=== PATIENT | female | born 1965 | race African-American/Black ===

== ENCOUNTER 2022-06-17 10:14 | Inpatient (IN) | payer MEDICAID, OTHER ==
[~2022-06-17] VITALS: Ht 170.2 cm; Wt 61.3 kg
[~2022-06-17 10:14] MED LIST: ALBU18HF2 IH; ASPI-1497 PO; CARV6.2548 MT; FLUT1DIS3 INH; FURO-151 MT; FURO-151 PO; LOSA25TA3 PO; P20 MT; SPIR25TA PO
[2022-06-17 11:18] LABS: BASOPHILS % 0.9 % (0.0-2.0); EOSINOPHILS % 1.1 % (0.0-5.0); HEMATOCRIT. 35.2 % (36.0-48.0); HEMOGLOBIN. 11.1 g/dL (12.0-16.0); LYMPHOCYTES % 23.2 % (20.0-50.0); MEAN PLATELET VOLUME 9.4 fl (7.4-10.4); MONOCYTES % 3.9 % (2.0-8.0); NEUTROPHILS % 70.9 % (40.0-76.0); PLATELET 246 x1000/uL (130-400); RED BLOOD CELL COUNT 3.59 mill/uL (4.2-5.4); RED CELL DISTRIBUTION WIDTH 15.4 % (11.6-14.6)
[2022-06-17 11:25] LABS: INR 1.1; PROTHROMBIN TIME 12.1 sec (9.6-11.0)
[2022-06-17 11:29] LABS: CHLORIDE 108 mEq/L (98-107)
[2022-06-17] MEDS ORDERED: IPRATROPIUM/ALBUTEROL 0.5-3(2.5)MG/3ML NEB HHN ONE (11:30)
[2022-06-17] MEDS ORDERED: METHYLPREDNISOLONE SOD SUCC 125 MG/2 ML VIAL IV ONE (11:30)
[2022-06-17] MEDS ORDERED: ASPIRIN 325MG EC TABLET PO ONE (12:15)
[2022-06-17] MEDS ORDERED: FUROSEMIDE 40MG/4ML VIAL IVP ONE (12:15)
[2022-06-17 17:59] VITALS: BP 104/70
[2022-06-17 19:58] VITALS: BP 125/73
[2022-06-17] MEDS: CARVEDILOL 6.25 MG TABLET PO SCH (21:00)
[2022-06-17] MEDS: FUROSEMIDE 40MG/4ML VIAL IVP SCH (22:09)
[2022-06-17] MEDS: FAMOTIDINE 20MG TABLET PO SCH (22:09)
[2022-06-17] MEDS: ENOXAPARIN 40MG/0.4ML SYR SUBCUT SCH (22:10)
[2022-06-18 00:05] VITALS: BP 119/62
[2022-06-18 00:31] LABS: *AMPHETAMINES SCREEN URINE NEGATIVE (NEGATIVE); *BARBITURATES SCREEN URINE NEGATIVE (NEGATIVE); *BENZODIAZEPINES SCREEN URINE NEGATIVE (NEGATIVE); *COCAINE SCREEN URINE NEGATIVE (NEGATIVE); CANNABINOID URINE SCREEN NEGATIVE (NEGATIVE); METHADONE URINE SCREEN NEGATIVE (NEGATIVE); OPIATES URINE SCREEN NEGATIVE (NEGATIVE); PHENCYCLIDINE URINE SCREEN NEGATIVE (NEGATIVE)
[2022-06-18 01:21] LABS: CREATINE KINASE MB FRACTION 1.1 ng/mL (0.5-3.6)
[2022-06-18] MEDS: ACETAMINOPHEN 325MG TABLET PO PRN (01:36)
[2022-06-18 04:05] VITALS: BP 108/58
[2022-06-18] MEDS: IPRATROPIUM/ALBUTEROL 0.5-3(2.5)MG/3ML NEB HHN PRN ×2 (05:49→09:39)
[2022-06-18 06:49] LABS: BASOPHILS % 0.8 % (0.0-2.0); EOSINOPHILS % 0.1 % (0.0-5.0); HEMATOCRIT. 37.7 % (36.0-48.0); HEMOGLOBIN. 12.5 g/dL (12.0-16.0); LYMPHOCYTES % 10.9 % (20.0-50.0); MEAN CORPUSCULAR HEMOGLOBIN 30.6 pg (28.0-32.0); MEAN CORPUSCULAR VOLUME 92.7 fL (81.0-99.0); MEAN PLATELET VOLUME 9.4 fl (7.4-10.4); MONOCYTES % 2.7 % (2.0-8.0); NEUTROPHILS % 85.5 % (40.0-76.0); PLATELET 270 x1000/uL (130-400); RED BLOOD CELL COUNT 4.07 mill/uL (4.2-5.4); RED CELL DISTRIBUTION WIDTH 14.4 % (11.6-14.6)
[2022-06-18 07:03] LABS: CHLORIDE 102 mEq/L (98-107)
[2022-06-18 07:22] LABS: CREATINE KINASE 92 IU/L (26-192); CREATINE KINASE MB FRACTION < 1.0 ng/mL (0.5-3.6); HDL CHOLESTEROL 45 mg/dL (40-59); LDL CHOLESTEROL 109 mg/dL (5-100)
[2022-06-18 08:00] VITALS: BP 112/76
[2022-06-18] MEDS: ENOXAPARIN 40MG/0.4ML SYR SUBCUT SCH (09:34)
[2022-06-18] MEDS: CARVEDILOL 6.25 MG TABLET PO SCH ×2 (09:34→20:59)
[2022-06-18] MEDS: FUROSEMIDE 40MG/4ML VIAL IVP SCH (09:34)
[2022-06-18] MEDS: PREDNISONE 20MG TABLET PO SCH (09:35)
[2022-06-18] MEDS: FAMOTIDINE 20MG TABLET PO SCH ×2 (09:35→20:58)
[2022-06-18] MEDS: ASPIRIN 81MG TABLET PO SCH (09:35)
[2022-06-18] MEDS: LOSARTAN POTASSIUM 25 MG TABLET PO SCH (09:35)
[2022-06-18] MEDS: BUDESONIDE 0.5MG/2ML NEB HHN SCH ×3 (09:39→21:44)
[2022-06-18] MEDS ORDERED: NALOXONE HCL 0.4MG/ML VIAL IV PRN (09:45)
[2022-06-18] MEDS: HYDROCODONE/ACETAMINOPHEN 5/325MG TABLET PO PRN ×2 (10:45→20:59)
[2022-06-18 12:00] VITALS: BP 89/51
[2022-06-18] MEDS: NICOTINE 21MG PATCH TD SCH (15:36)
[2022-06-18 16:00] VITALS: BP 92/55
[2022-06-18] MEDS ORDERED: PENICILLIN G BENZATHINE 2,400,000 UNITS/4ML SYR IM NR (16:30)
[2022-06-18 17:26] LABS: HEPATITIS B SURFACE ANTIGEN NEGATIVE
[2022-06-18 20:00] VITALS: BP 103/83
[2022-06-19] VITALS (45 sets, daily range): BP systolic 62–126; BP diastolic 33–93
[2022-06-19] MEDS: ACETAMINOPHEN 325MG TABLET PO PRN (04:22)
[2022-06-19] MEDS ORDERED: FUROSEMIDE 40MG TABLET PO SCH (09:00)
[2022-06-19] MEDS: NICOTINE 21MG PATCH TD SCH (09:00)
[2022-06-19] MEDS: LOSARTAN POTASSIUM 25 MG TABLET PO SCH (09:00)
[2022-06-19] MEDS ORDERED: SPIRONOLACTONE 25MG TABLET PO SCH (09:00)
[2022-06-19] MEDS: BUDESONIDE 0.5MG/2ML NEB HHN SCH ×2 (09:24→21:31)
[2022-06-19] MEDS: IPRATROPIUM/ALBUTEROL 0.5-3(2.5)MG/3ML NEB HHN PRN ×2 (09:24→21:32)
[2022-06-19] MEDS ORDERED: METOPROLOL SUCCINATE 50MG ER TABLET PO SCH (09:30)
[2022-06-19] MEDS: FAMOTIDINE 20MG TABLET PO SCH (09:46)
[2022-06-19] MEDS: PREDNISONE 20MG TABLET PO SCH (09:47)
[2022-06-19] MEDS: ASPIRIN 81MG TABLET PO SCH (09:47)
[2022-06-19] MEDS: ENOXAPARIN 40MG/0.4ML SYR SUBCUT SCH (09:47)
[2022-06-19] MEDS ORDERED: SODIUM CHLORIDE 0.9% 1000ML BAG (SEPSIS BOLUS) IV NR (11:45)
[2022-06-19] MEDS: DOXYCYCLINE HYCLATE 100MG CAPSULE PO SCH ×2 (12:05→23:19)
[2022-06-19] MEDS: CEFTRIAXONE 1,000 MG in DEXTROSE 5% WATER 50 ML IV SCH (12:50)
[2022-06-19] MEDS: PHENYLEPHRINE 50 MG in DEXT 5% WATER 245 ML IV PRN ×2 (13:41→22:03)
[2022-06-19] MEDS: SODIUM CHLORIDE 0.9% 1,000 ML IV SCH ×2 (14:55→23:20)
[2022-06-19 15:29] LABS: CREATINE KINASE 96 IU/L (26-192)
[2022-06-19 20:55] LABS: BG BASE EXCESS -2.5 mmol/L (-2.0-2.0); BG CARBOXYHEMOGLOBIN 1.3 % (0.5-1.5); BG DEOXYHEMOGLOBIN 1.5 % (0.0-5.0); BG FRACTION INSPIRED OXYGEN 28; BG METHEMOGLOBIN 0.3 % (0.0-1.5); BG OXYGEN SATURATION 98.5 % (92.0-98.5); BG OXYHEMOGLOBIN 96.9 % (94.0-97.0); BG PCO2 37.6 mmHg (35.0-45.0); BG PH 7.386 (7.350-7.450); BG PO2 126.3 mmHg (75.0-100.0); BG TOTAL HEMOGLOBIN 14.6 g/dL (12.0-18.0); BG VENT MODE NASAL CANNULA
[2022-06-20] VITALS (93 sets, daily range): BP systolic 43–183; BP diastolic 19–87
[2022-06-20 05:36] LABS: BASOPHILS % 1.2 % (0.0-2.0); EOSINOPHILS % 0.1 % (0.0-5.0); HEMATOCRIT. 41.7 % (36.0-48.0); HEMOGLOBIN. 13.5 g/dL (12.0-16.0); LYMPHOCYTES % 22.2 % (20.0-50.0); MEAN CORPUSCULAR HEMOGLOBIN 30.2 pg (28.0-32.0); MEAN CORPUSCULAR VOLUME 92.9 fL (81.0-99.0); MEAN PLATELET VOLUME 9.2 fl (7.4-10.4); NEUTROPHILS % 69.5 % (40.0-76.0); PLATELET 238 x1000/uL (130-400); RED BLOOD CELL COUNT 4.48 mill/uL (4.2-5.4); RED CELL DISTRIBUTION WIDTH 14.1 % (11.6-14.6)
[2022-06-20] MEDS: NICOTINE 21MG PATCH TD SCH (09:00)
[2022-06-20] MEDS ORDERED: LIDOCAINE HCL 1% 10 MG/ML 10ML VIAL ONE (09:23)
[2022-06-20] MEDS: SODIUM CHLORIDE 0.9% 1,000 ML IV SCH ×2 (09:45→19:30)
[2022-06-20 10:09] LABS: HIV SCREEN 4G Non Reactive (Non Reactive)
[2022-06-20] MEDS: PHENYLEPHRINE 50 MG in DEXT 5% WATER 245 ML IV PRN ×2 (10:24→22:25)
[2022-06-20] MEDS: PREDNISONE 20MG TABLET PO SCH (10:25)
[2022-06-20] MEDS: ASPIRIN 81MG TABLET PO SCH (10:25)
[2022-06-20] MEDS: ENOXAPARIN 30MG/0.3ML SYR SUBCUT SCH (10:25)
[2022-06-20 10:32] LABS: CLARITY URINE CLEAR (CLEAR); COLOR URINE YELLOW (YELLOW); KETONES URINE NEGATIVE (NEGATIVE); LEUKOCYTE ESTERASE URINE NEGATIVE (NEGATIVE); NITRITE URINE NEGATIVE (NEGATIVE); OCCULT BLOOD URINE NEGATIVE (NEGATIVE); PH URINE 5.5 (4.5-8.0); PROTEIN URINE 2+ (NEGATIVE); SPECIFIC GRAVITY URINE 1.015 (1.005-1.030)
[2022-06-20] MEDS: IPRATROPIUM/ALBUTEROL 0.5-3(2.5)MG/3ML NEB HHN PRN (11:20)
[2022-06-20] MEDS: DOXYCYCLINE HYCLATE 100MG CAPSULE PO SCH ×2 (11:21→22:25)
[2022-06-20] MEDS: CEFTRIAXONE 1,000 MG in DEXTROSE 5% WATER 50 ML IV SCH (11:21)
[2022-06-20] MEDS: HYDROCODONE/ACETAMINOPHEN 5/325MG TABLET PO PRN (13:25)
[2022-06-20 14:08] LABS: NEISSERIA GONORRHOEAE NAA Negative (Negative)
[2022-06-20] MEDS: MIDODRINE HCL 5MG TABLET PO SCH (17:37)
[2022-06-20] MEDS: IPRATROPIUM/ALBUTEROL 0.5-3(2.5)MG/3ML NEB HHN SCH (20:27)
[2022-06-20] MEDS: BUDESONIDE 0.5MG/2ML NEB HHN SCH (20:27)
[2022-06-20] MEDS: GUAIFENESIN 600MG ER TABLET PO SCH (22:25)
[2022-06-21] VITALS (43 sets, daily range): BP systolic 86–165; BP diastolic 55–89
[2022-06-21] MEDS: IPRATROPIUM/ALBUTEROL 0.5-3(2.5)MG/3ML NEB HHN SCH ×4 (02:01→21:14)
[2022-06-21] MEDS: SODIUM CHLORIDE 0.9% 1,000 ML IV SCH (05:18)
[2022-06-21] MEDS: HYDROCODONE/ACETAMINOPHEN 5/325MG TABLET PO PRN ×2 (05:18→15:44)
[2022-06-21 06:14] LABS: CHLORIDE 107 mEq/L (98-107)
[2022-06-21 08:46] LABS: EOSINOPHILS % 2.6 % (0.0-5.0); HEMATOCRIT. 33.1 % (36.0-48.0); HEMOGLOBIN. 10.8 g/dL (12.0-16.0); LYMPHOCYTES % 31.9 % (20.0-50.0); MEAN CORPUSCULAR HEMOGLOBIN 30.1 pg (28.0-32.0); MEAN CORPUSCULAR VOLUME 92.2 fL (81.0-99.0); MEAN PLATELET VOLUME 9.4 fl (7.4-10.4); MONOCYTES % 8.8 % (2.0-8.0); NEUTROPHILS % 55.7 % (40.0-76.0); PLATELET 198 x1000/uL (130-400); RED BLOOD CELL COUNT 3.59 mill/uL (4.2-5.4); RED CELL DISTRIBUTION WIDTH 14.4 % (11.6-14.6)
[2022-06-21] MEDS: ENOXAPARIN 30MG/0.3ML SYR SUBCUT SCH (09:06)
[2022-06-21] MEDS: ASPIRIN 81MG TABLET PO SCH (09:06)
[2022-06-21] MEDS: PREDNISONE 20MG TABLET PO SCH (09:07)
[2022-06-21] MEDS: MIDODRINE HCL 5MG TABLET PO SCH ×4 (09:07→17:00)
[2022-06-21] MEDS: GUAIFENESIN 600MG ER TABLET PO SCH ×2 (09:07→21:07)
[2022-06-21] MEDS: DOXYCYCLINE HYCLATE 100MG CAPSULE PO SCH ×2 (11:31→23:42)
[2022-06-21] MEDS: CEFTRIAXONE 1,000 MG in DEXTROSE 5% WATER 50 ML IV SCH (12:42)
[2022-06-21] MEDS: BUDESONIDE 0.5MG/2ML NEB HHN SCH (21:14)
[2022-06-22] VITALS: BP 150/82
[2022-06-22] MEDS: IPRATROPIUM/ALBUTEROL 0.5-3(2.5)MG/3ML NEB HHN SCH ×3 (01:24→13:37)
[2022-06-22 04:00] VITALS: BP 152/75
[2022-06-22 08:00] VITALS: BP 146/72
[2022-06-22] MEDS: PREDNISONE 20MG TABLET PO SCH (08:14)
[2022-06-22] MEDS: MIDODRINE HCL 5MG TABLET PO SCH ×2 (08:14→12:18)
[2022-06-22] MEDS: GUAIFENESIN 600MG ER TABLET PO SCH (08:14)
[2022-06-22] MEDS: ASPIRIN 81MG TABLET PO SCH (08:14)
[2022-06-22] MEDS ORDERED: ENOXAPARIN 40MG/0.4ML SYR SUBCUT SCH (09:00)
[2022-06-22] MEDS: BUDESONIDE 0.5MG/2ML NEB HHN SCH (09:05)
[2022-06-22 11:47] LABS: BASOPHILS % 0.9 % (0.0-2.0); EOSINOPHILS % 4.8 % (0.0-5.0); HEMOGLOBIN. 11.7 g/dL (12.0-16.0); LYMPHOCYTES % 31.4 % (20.0-50.0); MEAN CORPUSCULAR HEMOGLOBIN 30.2 pg (28.0-32.0); MEAN CORPUSCULAR VOLUME 92.6 fL (81.0-99.0); MEAN PLATELET VOLUME 9.1 fl (7.4-10.4); MONOCYTES % 13.2 % (2.0-8.0); NEUTROPHILS % 49.7 % (40.0-76.0); PLATELET 212 x1000/uL (130-400); RED BLOOD CELL COUNT 3.89 mill/uL (4.2-5.4); RED CELL DISTRIBUTION WIDTH 14.5 % (11.6-14.6)
[2022-06-22 11:51] LABS: CHLORIDE 105 mEq/L (98-107)
[2022-06-22 12:00] VITALS: BP 156/93
[2022-06-22] MEDS: DOXYCYCLINE HYCLATE 100MG CAPSULE PO SCH (12:18)
[2022-06-22] MEDS: CEFTRIAXONE 1,000 MG in DEXTROSE 5% WATER 50 ML IV SCH (13:11)
[2022-06-22] MEDS ORDERED: DOXY100C5 PO (15:03)
[2022-06-22] MEDS ORDERED: METO-385 PO (15:03)
[2022-06-22 16:00] VITALS: BP 149/87
[2022-06-22 16:14] VITALS: BP 149/87
[2022-06-23] MEDS ORDERED: CEFTRIAXONE 1GM PREMIX 50 ML IV SCH (12:00)
== END 2022-06-22 17:45 | disposition home or self-care (01) | DRG 720 ==
LOC: ER 10:29 → 3WST 12:59 → EDBEDREQ 13:02 → EDBEDREQTM 13:02 → ENRESERV 15:30 → CVICU 06-19 13:12 → 3WST 06-21 18:57
PROVIDERS: ADMIT Internal Medicine; ATTEND Internal Medicine
PROC: 02HV33Z Insertion of Infusion Device into Superior Vena Cava, Percutaneous Approach (ICD-10-PCS; principal; 2022-06-20)
PROC: B548ZZA Ultrasonography of Superior Vena Cava, Guidance (ICD-10-PCS; 2022-06-20)
DX: A41.9 Sepsis, unspecified organism (principal); N17.0 Acute kidney failure with tubular necrosis; J96.01 Acute respiratory failure with hypoxia; R65.21 Severe sepsis with septic shock; G93.40 Encephalopathy, unspecified; I50.23 Acute on chronic systolic (congestive) heart failure; E87.20 Acidosis, unspecified; I95.9 Hypotension, unspecified; A53.9 Syphilis, unspecified; I11.0 Hypertensive heart disease with heart failure; J44.1 Chronic obstructive pulmonary disease with (acute) exacerbation; Z20.822 Contact with and (suspected) exposure to COVID-19; F17.210 Nicotine dependence, cigarettes, uncomplicated; Z20.2 Contact with and (suspected) exposure to infections with a predominantly sexual mode of transmission; Z79.51 Long term (current) use of inhaled steroids; Z88.6 Allergy status to analgesic agent; Z88.8 Allergy status to other drugs, medicaments and biological substances; I25.2 Old myocardial infarction; Z91.14 Patient's other noncompliance with medication regimen; Z91.199 Patient's noncompliance with other medical treatment and regimen due to unspecified reason
CPT/HCPCS: 36415; 36573; 36600; 71045; 76770; 78580; 80048; 80053; 80061; 80305; 81003; 82140; 82375; 82550; 82553; 82805; 82962; 83605; 83735; 83880; 84145; 84443; 84484; 85025; 85379; 86592; 86593; 86705; 86709; 86780; 86803; 87340; 87389; 87426; 87491; 87591; 93005; 93306; 93970; 94640; 99291; C1725; J0561; J0696; J1650; J1940; J2370; J2930; J3490; J7030; J7060; J7512; J7626